=== PATIENT | female | born 1990 | race Caucasian/White ===

== ENCOUNTER 2018-11-16 12:21 | Emergency (ER) | payer OTHER ==
[~2018-11-16] VITALS: Ht 162.6 cm; Wt 63.6 kg
[2018-11-16] MEDS ORDERED: ONDANSETRON 4MG/2ML VIAL (J2405) IV ONE (12:45)
[2018-11-16] MEDS ORDERED: KETOROLAC 30 MG/ML VIAL (J1885) IV ONE (13:00)
[2018-11-16 13:06] LABS: BASO % 0.3 % (0.0-1.0); EOS % 0.3 % (0.0-3.0); HEMATOCRIT 34.5 % (36.0-47.0); HEMOGLOBIN 10.9 g/dl (12.0-15.5); LYMPH # 2.3 10^3/uL (1.5-6.5); LYMPH % 20.3 % (24.0-44.0); MEAN CORPUSCULAR HGB CONC 31.6 g/dl (32.0-36.5); MEAN CORPUSCULAR VOLUME 85.6 fl (80.0-96.0); MONO # 0.8 10^3/uL (0.0-0.8); MONO % 7.2 % (0.0-5.0); NEUTROPHILS % 71.6 % (36.0-66.0); PLATELET COUNT, AUTOMATED 268 10^3/uL (150-450); RED BLOOD COUNT 4.03 10^6/uL (4.00-5.40); WHITE BLOOD COUNT 11.2 10^3/uL (4.0-10.0)
[2018-11-16 13:37] LABS: ALBUMIN 3.8 GM/DL (3.2-5.2); ALT/SGPT 14 U/L (12-78); AMYLASE 56 U/L (25-115); BILIRUBIN,DIRECT < 0.1 MG/DL (0.0-0.2); BILIRUBIN,TOTAL 0.2 MG/DL (0.2-1.0); BLOOD UREA NITROGEN 11 MG/DL (7-18); CALCIUM LEVEL 8.3 MG/DL (8.5-10.1); CARBON DIOXIDE LEVEL 25 MEQ/L (21-32); CHLORIDE LEVEL 110 MEQ/L (98-107); CREATININE FOR GFR 0.92 MG/DL (0.55-1.30); GLOMERULAR FILTRATION RATE > 60.0 (>60); GLUCOSE, FASTING 85 MG/DL (70-100); LIPASE 232 U/L (73-393); POTASSIUM SERUM 3.8 MEQ/L (3.5-5.1); SODIUM LEVEL 140 MEQ/L (136-145)
--- NOTE | 2018-11-16 14:33 | REP ---
CT ABDOMEN AND PELVIS WITHOUT CONTRAST: CT abdomen and pelvis performed without oral or IV contrast. Sagittal and coronal reconstruction images are performed. Visualized lungs bases are clear. In the posterior right lobe of the liver there is a 5.3 cm mass which is nonspecific. Gallbladder is grossly unremarkable. Spleen, adrenals, pancreas, and kidneys are grossly unremarkable. I see no renal calculus or hydronephrosis. There is no abdominal aortic aneurysm. I see no evidence of gross adenopathy. No free air is seen. No gross bowel wall thickening is seen. There is no evidence of appendicitis. In the pelvis there is a cystic structure presumably from the right ovary measuring 4.7 cm in diameter. There is mild adjacent free fluid as well as mild free fluid in the right pericolic gutter. Urinary bladder is not well distended and not well evaluated. IMPRESSION: Right ovarian cyst 4.7 cm in diameter with mild adjacent free fluid and mild free fluid in the right paracolic gutter. No evidence of appendicitis. No evidence of renal calculus or hydronephrosis. Mass in the right lobe of the liver measures 5.3 cm in diameter, a nonspecific finding which is probably benign. Recommend followup CT or MRI of the liver with dynamic administration of intravenous contrast. Electronically Signed by Ellis Neumann MD 11/16/2018 07:35 P
[2018-11-16] MEDS ORDERED: ISOVUE-370 76% 100ML VIAL (Q9967) As Ordered ONE (15:42)
[2018-11-16] MEDS: MORPHINE 4 MG/ML 1ML VIAL/SYRINGE (J2270) IV PRN ×2 (16:37→18:10)
[2018-11-16] MEDS ORDERED: NS 1,000 ML IV ONE (17:15)
[2018-11-16] MEDS ORDERED: IBUP80TA PO (18:35)
[2018-11-16] MEDS ORDERED: ENDO7.5T11 PO (18:35)
[2018-11-16 18:45] VITALS: BP 136/88
[2018-11-16 18:46] LABS: CHLAMYDIA DNA AMPLIFICATION NEGATIVE (NEGATIVE); GC DNA AMPLIFICATION NEGATIVE (NEGATIVE)
--- NOTE | 2018-11-16 20:04 | ED PDOC ---
Post-Departure Follow-Up dr sewell faxed formal report of cta bd/p for fu. also certified letter sent to pt re formal read. see report. needs pcp fu for liver finding. no pcp documented. if there is one fax report to pcp. if there is not then refer to [facility] and fax there Chata Adamson MD Nov 16, 2018 20:04
--- NOTE | 2018-11-17 09:01 | REP ---
PELVIC ULTRASOUND: Real-time sonographic evaluation of the pelvis performed utilizing transabdominal and endovaginal technique. Bladder measures 3.5 x 4.6 cm. Uterus measures 6.4 x 3.8 x 4.6 cm. Endometrial thickness is 10 mm. Right ovary is enlarged measuring 5.2 x 4.2 x 5.5 cm. There is a complex right ovarian cyst 4.3 x 3.3 x 4.3 cm. Left ovary measures 3.5 x 1.8 x 1.8 cm. There is no ovarian torsion bilaterally, resistive index right ovary 0.59 and left ovary 0.51. There is a small amount of free fluid. IMPRESSION: Complex right ovarian cyst 4.3 cm in diameter. No torsion. Mild free fluid. Electronically Signed by Ellis Neumann MD 11/17/2018 06:52 P
--- NOTE | 2018-11-17 09:01 | REP ---
CT ABDOMEN WITH IV CONTRAST: TECHNIQUE: Axial contrast enhanced images from the lung bases to the pubic symphysis using 100 mL Isovue 370 intravenous contrast material with multiplanar reformations. Visualized lung bases are clear. Liver demonstrates a mass once again in the posterior right lobe measuring approximately 5.5 cm in diameter. There is peripheral nodular enhancement with gradual filling in on delayed images consistent with an hemangioma. No other liver abnormality is seen. The spleen, adrenals, pancreas, and kidneys are unremarkable. There is no free air. Mild edema and fluid in the right paracolic region is likely arising from the pelvis where there is a complex right ovarian cyst with free fluid. IMPRESSION: Mass in the right lobe of the liver represents a benign hemangioma. Electronically Signed by Ellis Neumann MD 11/17/2018 06:53 P
[2018-11-21] MEDS ORDERED: PERCOCET PO (12:23)
== END 2018-11-16 18:50 | disposition home or self-care (01) ==
LOC: M ED 12:21
DX: N83.291 Other ovarian cyst, right side (principal); D18.09 Hemangioma of other sites; D64.9 Anemia, unspecified; E83.51 Hypocalcemia; R11.0 Nausea; R00.0 Tachycardia, unspecified; M79.7 Fibromyalgia; E28.2 Polycystic ovarian syndrome
CPT/HCPCS: 74160; 76830; 76856; 80048; 80076; 81001; 81025; 82150; 83690; 85025; 87210; 87491; 87591; 93976; 96374; 96375; 96376; 99284; J1885; J2270; J2405; Q9967

== ENCOUNTER → 2018-11-29 | Outpatient (CLI) | payer OTHER ==
[~2018-11-29] MED LIST: ENDO7.5T11 PO; IBUP80TA PO; PERCOCET PO
--- NOTE | 2018-11-29 20:31 | REP ---
Pelvic ultrasound balloon including transabdominal, endovaginal and Doppler. Assessment: Comparison is 11/16/2018. On the comparison study there was a complex 4.3 cm right ovarian cyst. Right ovary: The right ovarian cyst that has decreased in size measuring 1.9 x 1.5 x 1.4 cm. The right ovary is normal size measuring 4.4 x 3.1 x 3.6 cm There is vascular flow in the right ovary with the Doppler resistive index of the parenchymal arteries measuring 0.54 Left ovary: The left ovary is normal size measuring 2.9 x 2.4-0.8 cm. There is no dominant mass or cyst. With color Doppler assessment there is vascular flow in the left ovary. Uterus: The uterus is anteverted and normal size measuring 7.2 x 3.5 x 4.8 cm. The endometrium is not thickened measuring 10.5 mm. Impression: The right ovarian cyst has significantly decreased in size. Electronically Signed by Ellis Castaneda MD 11/29/2018 08:22 P
== END ==
LOC: M RAD 10:13
PROVIDERS: ATTEND Obstetrics & Gynecology
DX: N83.291 Other ovarian cyst, right side (principal)

== ENCOUNTER → 2019-03-05 | Outpatient (CLI) | payer OTHER ==
--- NOTE | 2019-03-05 13:53 | REP ---
Clinical: pain Technique: AP, lateral, bilateral oblique views left foot . Findings: The osseous structures and joint spaces are intact and normal. There is no evidence for acute fracture or dislocation. Surrounding soft tissues are unremarkable. No subcutaneous emphysema or radiodense foreign body. Impression: Normal left foot radiographs. No acute fracture or dislocation. Electronically Signed by Jaime Barrios MD 03/05/2019 01:45 P
== END ==
LOC: M SMT 13:24
PROVIDERS: ATTEND Physician Assistant
DX: M79.672 Pain in left foot (principal)

== ENCOUNTER → 2019-05-05 | Outpatient (REF) | payer OTHER | LOC: M LAB REF 16:59 | PROVIDERS: ATTEND Family Medicine | DX: N39.0 Urinary tract infection, site not specified (principal); N76.0 Acute vaginitis ==

== ENCOUNTER → 2019-05-20 | Outpatient (REF) | payer OTHER | LOC: M SFHCLERA 20:32 | PROVIDERS: ATTEND Nurse Practitioner Family | DX: J02.9 Acute pharyngitis, unspecified (principal) ==

== ENCOUNTER → 2019-07-04 | Outpatient (CLI) | payer OTHER ==
[2019-07-04 18:34] LABS: ALBUMIN 3.7 GM/DL (3.2-5.2); ALT/SGPT 13 U/L (12-78); BILIRUBIN,TOTAL 0.2 MG/DL (0.2-1.0); BLOOD UREA NITROGEN 14 MG/DL (7-18); CALCIUM LEVEL 8.4 MG/DL (8.5-10.1); CARBON DIOXIDE LEVEL 21 MEQ/L (21-32); CHLORIDE LEVEL 110 MEQ/L (98-107); CREATININE FOR GFR 0.95 MG/DL (0.55-1.30); FREE T4 0.91 NG/DL (0.76-1.46); GLOMERULAR FILTRATION RATE > 60.0 (>60); GLUCOSE, FASTING 76 MG/DL (70-100); POTASSIUM SERUM 4.1 MEQ/L (3.5-5.1); SODIUM LEVEL 140 MEQ/L (136-145); THYROID STIMULATING HORMONE 0.885 uIU/ML (0.358-3.740); TOTAL PROTEIN 6.9 GM/DL (6.4-8.2)
[2019-07-04 21:47] LABS: HEMOGLOBIN A1c 5.2 %
== END ==
LOC: M LRY 10:30
PROVIDERS: ATTEND Physician Assistant
DX: Z13.29 Encounter for screening for other suspected endocrine disorder (principal)

== ENCOUNTER → 2019-07-17 | Outpatient (CLI) | payer OTHER ==
[2019-07-17 16:39] LABS: BASO # 0.1 10^3/uL (0.0-0.2); EOS # 0.1 10^3/uL (0.0-0.5); EOS % 1.3 % (0.0-3.0); HEMATOCRIT 34.5 % (36.0-47.0); HEMOGLOBIN 10.1 g/dl (12.0-15.5); LYMPH # 1.9 10^3/uL (1.5-5.0); LYMPH % 32.3 % (24.0-44.0); MEAN CORPUSCULAR HEMOGLOBIN 24.4 pg (27.0-33.0); MEAN CORPUSCULAR HGB CONC 29.3 g/dl (32.0-36.5); MEAN CORPUSCULAR VOLUME 83.3 fl (80.0-96.0); MONO # 0.5 10^3/uL (0.0-0.8); MONO % 9.1 % (0.0-5.0); NEUTROPHILS # 3.3 10^3/uL (1.5-8.5); NEUTROPHILS % 56.1 % (36.0-66.0); PLATELET COUNT, AUTOMATED 288 10^3/uL (150-450); RED BLOOD COUNT 4.14 10^6/uL (4.00-5.40)
== END ==
LOC: M LRY 10:17
PROVIDERS: ATTEND Physician Assistant
DX: Z79.899 Other long term (current) drug therapy (principal)
CPT/HCPCS: 36415; 85025; G0463

== ENCOUNTER → 2019-10-21 | Outpatient (REF) | payer OTHER ==
[2019-10-21 22:32] LABS: CHLAMYDIA DNA AMPLIFICATION NEGATIVE (NEGATIVE); GC DNA AMPLIFICATION NEGATIVE (NEGATIVE)
== END ==
LOC: M SFHCLERA 17:50
PROVIDERS: ATTEND Physician Assistant
DX: N89.8 Other specified noninflammatory disorders of vagina (principal)
CPT/HCPCS: 81002; 81025; 87070; 87077; 87086; 87661; G0463

== ENCOUNTER → 2019-11-13 | Outpatient (CLI) | payer OTHER ==
[2019-11-13 20:01] LABS: BASO % 0.7 % (0.0-1.0); EOS % 0.5 % (0.0-3.0); HEMATOCRIT 38.2 % (36.0-47.0); HEMOGLOBIN 11.3 g/dl (12.0-15.5); LYMPH # 1.9 10^3/uL (1.5-5.0); LYMPH % 33.2 % (24.0-44.0); MEAN CORPUSCULAR HEMOGLOBIN 25.5 pg (27.0-33.0); MEAN CORPUSCULAR HGB CONC 29.6 g/dl (32.0-36.5); MEAN CORPUSCULAR VOLUME 86.2 fl (80.0-96.0); MONO # 0.4 10^3/uL (0.0-0.8); MONO % 7.5 % (0.0-5.0); NEUTROPHILS # 3.3 10^3/uL (1.5-8.5); NEUTROPHILS % 57.9 % (36.0-66.0); PLATELET COUNT, AUTOMATED 253 10^3/uL (150-450); RED BLOOD COUNT 4.43 10^6/uL (4.00-5.40); WHITE BLOOD COUNT 5.7 10^3/uL (4.0-10.0)
[2019-11-13 20:10] LABS: PERCENT SATURATION 6.6 % (13.2-45.0)
== END ==
LOC: M LRY 15:26
PROVIDERS: ATTEND Physician Assistant
DX: D50.9 Iron deficiency anemia, unspecified (principal)

== ENCOUNTER 2019-11-21 08:16 | Outpatient (CLI) | payer OTHER ==
[~2019-11-21] VITALS: Ht 162.6 cm; Wt 63.6 kg
[2019-11-21 08:20] VITALS: BP 132/72
[2019-11-21] MEDS ORDERED: IBUP-1022 PO (08:39)
[2019-11-21] MEDS ORDERED: OMEP-218 PO (08:39)
[2019-11-21] MEDS ORDERED: GERILIQ7 PO (08:42)
[2019-11-21] MEDS ORDERED: ZOFR4TAB16 SL (08:49)
[2019-11-21] MEDS ORDERED: FERRIC CARBOXYMALTOSE INJ 750 MG in NS 250 ML IV ONE (09:00)
[2019-11-21 09:20] VITALS: BP 162/80
[2019-11-21 09:50] VITALS: BP 128/65
[2019-11-21] MEDS ORDERED: ONDANSETRON 4 MG ORAL DISINTEGRATING TAB (Q0162 PER 1MG) SL ONE (10:00)
[2019-11-21 11:00] VITALS: BP 135/76
[2019-11-21 11:45] VITALS: BP 139/69
== END 2019-11-21 11:45 | disposition home or self-care (01) ==
LOC: M INFU 08:16
PROVIDERS: ATTEND Physician Assistant
DX: D50.9 Iron deficiency anemia, unspecified (principal)
CPT/HCPCS: 96365; 96366; J1439; Q0162

== ENCOUNTER 2019-11-28 08:12 | Outpatient (CLI) | payer OTHER ==
[~2019-11-28] VITALS: Ht 167.6 cm; Wt 63.6 kg
[~2019-11-28 08:12] MED LIST changes: +GERILIQ7 PO; +IBUP-1022 PO; +OMEP-218 PO; +ZOFR4TAB16 SL
[2019-11-28 08:48] VITALS: BP 121/74
[2019-11-28] MEDS ORDERED: FERRIC CARBOXYMALTOSE INJ 750 MG in NS 250 ML IV ONE (09:00)
[2019-11-28 10:15] VITALS: BP 112/63
== END 2019-11-28 10:30 | disposition home or self-care (01) ==
LOC: M INFU 08:12
PROVIDERS: ATTEND Physician Assistant
DX: D50.9 Iron deficiency anemia, unspecified (principal)
CPT/HCPCS: 96365; J1439